=== PATIENT | female | born 1970 | race Caucasian/White ===

== ENCOUNTER 2016-06-17 22:56 | Inpatient (IN) | payer MEDICARE, MEDICAID ==
[~2016-06-17] VITALS: Ht 152.4 cm; Wt 60.3 kg
[2016-06-17] MEDS ORDERED: DIVA250T25 PO (23:26)
[2016-06-17] MEDS ORDERED: MIDO10TA PO (23:26)
[2016-06-17] MEDS ORDERED: LEVO75TA10 PO (23:26)
[2016-06-17] MEDS ORDERED: OXCA300T PO (23:26)
[2016-06-17] MEDS ORDERED: QUET400T12 PO (23:26)
[2016-06-17] MEDS ORDERED: TRAZ-147 PO (23:26)
[2016-06-17] MEDS ORDERED: VENL-67 PO (23:26)
[2016-06-17] MEDS ORDERED: CHLO25TA PO (23:26)
[2016-06-17 23:30] LABS: BASOPHILS % (AUTO) 0.4 % (0.0-2.0); EOSINOPHILS % (AUTO) 0.8 % (1.0-6.0); HEMATOCRIT 38.5 % (36-46); HEMOGLOBIN 12.3 g/dL (12.0-16.0); LYMPHOCYTES # (AUTO) 3.2 K/uL (1.0-4.8); LYMPHOCYTES % (AUTO) 27.7 % (22.0-44.0); MEAN CORPUSCULAR HEMOGLOBIN 28.5 pg (26.0-34.0); MEAN CORPUSCULAR VOLUME 89 fL (80-100); MONOCYTES # (AUTO) 0.6 K/uL (0.1-1.0); MONOCYTES % (AUTO) 4.9 % (2.0-9.0); NEUTROPHILS # (AUTO) 7.7 K/uL (1.8-7.7); NEUTROPHILS % (AUTO) 66.2 % (40.0-70.0); PLATELET COUNT (AUTO) 273 K/uL (150-450); RED BLOOD CELL COUNT(AUTO) 4.33 MIL/uL (4.00-5.20); RED CELL DISTRIBUTION WIDTH 13.5 % (11.5-14.5); WHITE BLOOD COUNT (AUTO) 11.7 K/uL (4.5-11.0)
[2016-06-17 23:37] LABS: ANION GAP 10 mmol/L (8-16); CALCIUM, TOTAL 8.9 mg/dL (8.8-10.5); CARBON DIOXIDE 26 mmol/L (22-29); CHLORIDE 102 mmol/L (98-107); GLOMERULAR FILTR. RATE CALC > 60 mL/min (>60); POTASSIUM 3.8 mmol/L (3.5-5.1); SODIUM SERUM 138 mmol/L (136-145); UREA NITROGEN, BLOOD 24 mg/dL (7-18)
[2016-06-17 23:42] LABS: ALANINE AMINOTRANSFERASE 15 U/L (12-78); ALBUMIN 3.6 g/dL (3.4-5.0); ASPARTATE AMINOTRANSFERASE 12 U/L (15-37); BILIRUBIN,TOTAL 0.2 mg/dL (0.1-1.0); TOTAL PROTEIN, SERUM 8.4 g/dL (6.4-8.2)
[2016-06-18 12:04] VITALS: BP 96/62
[2016-06-18 16:03] VITALS: BP 112/67
[2016-06-18] MEDS: ZOLPIDEM TARTRATE 10 MG TABLET PO PRN (20:18)
[2016-06-19 06:10] VITALS: BP 103/60
[2016-06-19] MEDS: LEVOTHYROXINE SODIUM 75 MCG TABLET PO SCH (06:23)
[2016-06-19 08:09] VITALS: BP 95/54
[2016-06-19 16:09] VITALS: BP 109/65
[2016-06-19] MEDS ORDERED: ACETAMINOPHEN 650 MG/20.3 ML SOLUTION UDCUP PO PRN (16:15)
[2016-06-19] MEDS ORDERED: IBUPROFEN 400 MG TABLET PO PRN ×2 (16:15→21:15)
[2016-06-19] MEDS ORDERED: ACETAMINOPHEN 325 MG TABLET PO PRN ×2 (21:00→21:15)
[2016-06-19] MEDS: ZOLPIDEM TARTRATE 10 MG TABLET PO PRN (21:17)
[2016-06-20 06:01] VITALS: BP 101/60
[2016-06-20] MEDS: LEVOTHYROXINE SODIUM 75 MCG TABLET PO SCH (06:46)
[2016-06-20 08:01] VITALS: BP 100/51
[2016-06-20 08:46] LABS: CHOL/HDL RATIO 3.3 (3.9-5.7); THYROID STIMULATING HORMONE 2.8 uIU/mL (0.36-3.74)
[2016-06-20 16:00] VITALS: BP 137/66
[2016-06-20] MEDS: DIVALPROEX SODIUM 500 MG DR TABLET PO SCH (16:04)
[2016-06-20] MEDS: RisperiDONE 2 MG TABLET PO SCH (16:04)
[2016-06-20] MEDS: ZOLPIDEM TARTRATE 10 MG TABLET PO PRN (20:59)
[2016-06-21] MEDS: LEVOTHYROXINE SODIUM 75 MCG TABLET PO SCH (06:49)
[2016-06-21 07:17] VITALS: BP 102/62
[2016-06-21 08:10] VITALS: BP 109/75
[2016-06-21] MEDS: RisperiDONE 2 MG TABLET PO SCH ×2 (08:32→16:13)
[2016-06-21] MEDS: DIVALPROEX SODIUM 500 MG DR TABLET PO SCH ×2 (08:33→16:13)
[2016-06-21] MEDS ORDERED: MAG HYDROX/AL HYDROX/SIMETH ES 30 ML SUSPENSION UDCUP PO PRN (09:00)
[2016-06-21 16:00] VITALS: BP 108/66
[2016-06-21] MEDS: ZOLPIDEM TARTRATE 10 MG TABLET PO PRN (22:21)
[2016-06-22 06:10] VITALS: BP 152/69
[2016-06-22] MEDS: LEVOTHYROXINE SODIUM 75 MCG TABLET PO SCH (06:29)
[2016-06-22] MEDS: RisperiDONE 2 MG TABLET PO SCH ×2 (08:22→16:02)
[2016-06-22] MEDS: DIVALPROEX SODIUM 500 MG DR TABLET PO SCH ×2 (08:22→16:02)
[2016-06-22 09:15] VITALS: BP 115/77
[2016-06-22 16:11] VITALS: BP 105/67
[2016-06-22] MEDS: ZOLPIDEM TARTRATE 10 MG TABLET PO PRN (22:16)
[2016-06-23 04:28] VITALS: BP 110/79
[2016-06-23] MEDS: LEVOTHYROXINE SODIUM 75 MCG TABLET PO SCH (06:34)
[2016-06-23 08:47] VITALS: BP 127/103
[2016-06-23] MEDS: RisperiDONE 2 MG TABLET PO SCH ×2 (08:47→16:28)
[2016-06-23] MEDS: DIVALPROEX SODIUM 500 MG DR TABLET PO SCH ×2 (08:47→16:28)
[2016-06-23] MEDS: LORazepam 2 MG TABLET PO PRN (11:11)
[2016-06-23 16:00] VITALS: BP 101/65
[2016-06-23] MEDS: ZOLPIDEM TARTRATE 10 MG TABLET PO PRN (20:35)
[2016-06-24] MEDS: LEVOTHYROXINE SODIUM 75 MCG TABLET PO SCH (06:52)
[2016-06-24 07:05] VITALS: BP 115/62
[2016-06-24] MEDS: RisperiDONE 2 MG TABLET PO SCH ×2 (08:47→16:12)
[2016-06-24] MEDS: DIVALPROEX SODIUM 500 MG DR TABLET PO SCH ×2 (08:47→16:12)
[2016-06-24] MEDS: LORazepam 2 MG TABLET PO PRN ×2 (08:47→16:12)
[2016-06-24 09:08] VITALS: BP 113/66
[2016-06-24 16:04] VITALS: BP 109/75
[2016-06-25] MEDS: LEVOTHYROXINE SODIUM 75 MCG TABLET PO SCH (06:36)
[2016-06-25 06:58] VITALS: BP 102/66
[2016-06-25] MEDS: RisperiDONE 2 MG TABLET PO SCH ×2 (08:25→17:00)
[2016-06-25] MEDS: DIVALPROEX SODIUM 500 MG DR TABLET PO SCH ×2 (08:25→17:00)
[2016-06-25 08:30] VITALS: BP 113/76
[2016-06-25] MEDS: LORazepam 2 MG TABLET PO PRN (08:57)
[2016-06-25] MEDS ORDERED: PERMETHRIN 5% 60 GM CREAM TP ONE (10:00)
[2016-06-25] MEDS ORDERED: PERMETHRIN 1% 60 ML LOTION TP ONE (12:00)
[2016-06-25 16:23] VITALS: BP 119/62
[2016-06-26 06:25] VITALS: BP 105/63
[2016-06-26] MEDS: LEVOTHYROXINE SODIUM 75 MCG TABLET PO SCH (06:50)
[2016-06-26 08:20] VITALS: BP 119/76
[2016-06-26] MEDS: DIVALPROEX SODIUM 500 MG DR TABLET PO SCH ×2 (08:34→16:00)
[2016-06-26] MEDS: RisperiDONE 2 MG TABLET PO SCH ×2 (08:34→16:00)
[2016-06-26] MEDS: LORazepam 2 MG TABLET PO PRN ×2 (09:08→16:00)
[2016-06-26 16:00] VITALS: BP 118/78
[2016-06-26 16:17] VITALS: BP 103/67
[2016-06-27] MEDS: LEVOTHYROXINE SODIUM 75 MCG TABLET PO SCH (06:50)
[2016-06-27 07:11] VITALS: BP 110/62
[2016-06-27 08:12] VITALS: BP_SYST 122; BP_SYST 136; BP_DIAS 86; BP_DIAS 89
[2016-06-27] MEDS: DIVALPROEX SODIUM 500 MG DR TABLET PO SCH ×2 (08:36→16:12)
[2016-06-27] MEDS: RisperiDONE 2 MG TABLET PO SCH ×2 (08:36→16:12)
[2016-06-27] MEDS ORDERED: IVERMECTIN 3 MG TABLET PO ONE (15:30)
[2016-06-27 16:04] VITALS: BP 100/59
[2016-06-27 20:00] VITALS: BP 124/70
[2016-06-27] MEDS: LORazepam 2 MG TABLET PO PRN (20:17)
[2016-06-28 06:50] VITALS: BP 112/75
[2016-06-28] MEDS: LEVOTHYROXINE SODIUM 75 MCG TABLET PO SCH (06:57)
[2016-06-28] MEDS: RisperiDONE 2 MG TABLET PO SCH ×2 (08:05→16:20)
[2016-06-28] MEDS: HALOPERIDOL 5 MG TABLET PO PRN (08:05)
[2016-06-28] MEDS: LORazepam 2 MG TABLET PO PRN ×2 (08:05→16:20)
[2016-06-28] MEDS: DIVALPROEX SODIUM 500 MG DR TABLET PO SCH ×2 (08:05→16:20)
[2016-06-28 08:50] VITALS: BP 100/61
[2016-06-28 16:16] VITALS: BP 105/68
[2016-06-29] MEDS: LEVOTHYROXINE SODIUM 75 MCG TABLET PO SCH (06:32)
[2016-06-29] MEDS: RisperiDONE 2 MG TABLET PO SCH ×2 (08:06→16:02)
[2016-06-29] MEDS: DIVALPROEX SODIUM 500 MG DR TABLET PO SCH ×2 (08:06→16:02)
[2016-06-29 16:23] VITALS: BP 111/83
[2016-06-29] MEDS: ZOLPIDEM TARTRATE 10 MG TABLET PO PRN (22:25)
[2016-06-30 04:19] VITALS: BP 112/70
[2016-06-30] MEDS: LEVOTHYROXINE SODIUM 75 MCG TABLET PO SCH (06:32)
[2016-06-30 08:42] VITALS: BP 127/72
[2016-06-30] MEDS ORDERED: PERMETHRIN 1% 60 ML LOTION TP ONE (09:00)
[2016-06-30] MEDS: HALOPERIDOL 5 MG TABLET PO PRN (09:16)
[2016-06-30] MEDS: DIVALPROEX SODIUM 500 MG DR TABLET PO SCH ×2 (09:16→16:39)
[2016-06-30] MEDS: RisperiDONE 2 MG TABLET PO SCH ×2 (09:16→16:39)
[2016-06-30] MEDS: LORazepam 2 MG TABLET PO PRN ×2 (09:16→21:47)
[2016-06-30 13:20] VITALS: BP 119/69
[2016-06-30 16:20] VITALS: BP 119/82
[2016-07-01] MEDS: LEVOTHYROXINE SODIUM 75 MCG TABLET PO SCH (06:48)
[2016-07-01 08:27] VITALS: BP 100/60
[2016-07-01] MEDS: RisperiDONE 2 MG TABLET PO SCH ×2 (08:48→17:22)
[2016-07-01] MEDS: DIVALPROEX SODIUM 500 MG DR TABLET PO SCH ×2 (08:48→17:22)
[2016-07-01 16:00] VITALS: BP 105/72
[2016-07-01] MEDS: LORazepam 2 MG TABLET PO PRN (22:06)
[2016-07-01] MEDS: ZOLPIDEM TARTRATE 10 MG TABLET PO PRN (22:06)
[2016-07-02] MEDS: LEVOTHYROXINE SODIUM 75 MCG TABLET PO SCH (06:39)
[2016-07-02 06:50] VITALS: BP 112/75
[2016-07-02 08:30] VITALS: BP 104/61
[2016-07-02] MEDS: LORazepam 2 MG TABLET PO PRN (08:48)
[2016-07-02] MEDS: DIVALPROEX SODIUM 500 MG DR TABLET PO SCH ×2 (08:49→16:14)
[2016-07-02] MEDS: RisperiDONE 2 MG TABLET PO SCH ×2 (08:49→16:14)
[2016-07-02 16:08] VITALS: BP 108/65
[2016-07-03 05:58] VITALS: BP 100/73
[2016-07-03] MEDS: LEVOTHYROXINE SODIUM 75 MCG TABLET PO SCH (06:47)
[2016-07-03 08:07] VITALS: BP 103/53
[2016-07-03] MEDS: RisperiDONE 2 MG TABLET PO SCH ×2 (08:44→16:16)
[2016-07-03] MEDS: DIVALPROEX SODIUM 500 MG DR TABLET PO SCH ×2 (08:44→16:16)
[2016-07-03] MEDS: LORazepam 2 MG TABLET PO PRN (08:44)
[2016-07-03 16:02] VITALS: BP 110/68
[2016-07-03 20:39] VITALS: BP 114/71
[2016-07-03] MEDS: ZOLPIDEM TARTRATE 10 MG TABLET PO PRN (21:02)
[2016-07-04] MEDS: LEVOTHYROXINE SODIUM 75 MCG TABLET PO SCH (06:29)
[2016-07-04 07:00] VITALS: BP 112/72
[2016-07-04 08:30] VITALS: BP 125/78
[2016-07-04 09:01] LABS: ADD UA MICROSCOPIC NO; APPEARANCE,URINE CLOUDY (CLEAR); GLUCOSE, URINE (UA) NEGATIVE (NEGATIVE); KETONES,URINE NEGATIVE (NEGATIVE); LEUKOCYTE ESTERASE ,URINE NEGATIVE (NEGATIVE); OCCULT BLOOD,URINE NEGATIVE (NEGATIVE); PROTEIN,URINE NEGATIVE (NEGATIVE)
[2016-07-04] MEDS: DIVALPROEX SODIUM 500 MG DR TABLET PO SCH ×2 (09:01→16:57)
[2016-07-04] MEDS: RisperiDONE 2 MG TABLET PO SCH ×2 (09:01→16:57)
[2016-07-04 16:00] VITALS: BP 108/64
[2016-07-04] MEDS: ZOLPIDEM TARTRATE 10 MG TABLET PO PRN (20:51)
[2016-07-05] MEDS: LEVOTHYROXINE SODIUM 75 MCG TABLET PO SCH (06:42)
[2016-07-05 07:26] VITALS: BP 91/64
[2016-07-05] MEDS: RisperiDONE 2 MG TABLET PO SCH ×2 (08:09→16:02)
[2016-07-05] MEDS: DIVALPROEX SODIUM 500 MG DR TABLET PO SCH ×2 (08:09→16:02)
[2016-07-05 08:30] VITALS: BP 100/56
[2016-07-05 16:00] VITALS: BP 128/73
[2016-07-05] MEDS: ZOLPIDEM TARTRATE 10 MG TABLET PO PRN (20:58)
[2016-07-06 06:10] VITALS: BP 104/64
[2016-07-06] MEDS: LEVOTHYROXINE SODIUM 75 MCG TABLET PO SCH (06:30)
[2016-07-06] MEDS: DIVALPROEX SODIUM 500 MG DR TABLET PO SCH ×2 (08:21→16:19)
[2016-07-06] MEDS: RisperiDONE 2 MG TABLET PO SCH ×2 (08:21→16:19)
[2016-07-06 08:37] VITALS: BP 92/50
[2016-07-06] MEDS: LORazepam 2 MG TABLET PO PRN (16:19)
[2016-07-06 16:24] VITALS: BP 112/69
[2016-07-06] MEDS: ZOLPIDEM TARTRATE 10 MG TABLET PO PRN (21:06)
[2016-07-07 01:28] VITALS: BP 101/71
[2016-07-07] MEDS: LEVOTHYROXINE SODIUM 75 MCG TABLET PO SCH (06:42)
[2016-07-07] MEDS: RisperiDONE 2 MG TABLET PO SCH ×2 (08:20→16:38)
[2016-07-07] MEDS: DIVALPROEX SODIUM 500 MG DR TABLET PO SCH ×2 (08:20→16:38)
[2016-07-07 08:29] VITALS: BP 122/66
[2016-07-07 16:00] VITALS: BP 110/70
[2016-07-07] MEDS: ZOLPIDEM TARTRATE 10 MG TABLET PO PRN (21:06)
[2016-07-08 06:03] VITALS: BP 117/72
[2016-07-08] MEDS: LEVOTHYROXINE SODIUM 75 MCG TABLET PO SCH (06:25)
[2016-07-08 08:54] VITALS: BP 100/55
[2016-07-08] MEDS: LORazepam 2 MG TABLET PO PRN ×2 (09:51→16:29)
[2016-07-08] MEDS: DIVALPROEX SODIUM 500 MG DR TABLET PO SCH ×2 (09:51→16:29)
[2016-07-08] MEDS: RisperiDONE 2 MG TABLET PO SCH ×2 (09:51→16:29)
[2016-07-08 16:28] VITALS: BP 139/73
[2016-07-08] MEDS: ZOLPIDEM TARTRATE 10 MG TABLET PO PRN (21:06)
[2016-07-09 06:03] VITALS: BP 128/76
[2016-07-09] MEDS: LEVOTHYROXINE SODIUM 75 MCG TABLET PO SCH (06:21)
[2016-07-09] MEDS: DIVALPROEX SODIUM 500 MG DR TABLET PO SCH ×2 (08:22→16:47)
[2016-07-09] MEDS: RisperiDONE 2 MG TABLET PO SCH ×2 (08:22→16:47)
[2016-07-09] MEDS: LORazepam 2 MG TABLET PO PRN ×2 (09:05→16:47)
[2016-07-09 16:30] VITALS: BP 94/69
[2016-07-09] MEDS: ZOLPIDEM TARTRATE 10 MG TABLET PO PRN (20:59)
[2016-07-10] MEDS: LEVOTHYROXINE SODIUM 75 MCG TABLET PO SCH (06:59)
[2016-07-10 08:32] VITALS: BP 100/52
[2016-07-10] MEDS: DIVALPROEX SODIUM 500 MG DR TABLET PO SCH ×2 (08:55→16:18)
[2016-07-10] MEDS: RisperiDONE 2 MG TABLET PO SCH ×2 (08:55→16:18)
[2016-07-10 16:16] VITALS: BP 105/67
[2016-07-10] MEDS: ZOLPIDEM TARTRATE 10 MG TABLET PO PRN (21:02)
[2016-07-11] MEDS: LEVOTHYROXINE SODIUM 75 MCG TABLET PO SCH (07:00)
[2016-07-11] MEDS: DIVALPROEX SODIUM 500 MG DR TABLET PO SCH ×2 (08:27→16:14)
[2016-07-11] MEDS: RisperiDONE 2 MG TABLET PO SCH ×2 (08:27→16:14)
[2016-07-11 08:44] VITALS: BP 100/53
[2016-07-11] MEDS: LORazepam 2 MG TABLET PO PRN (16:14)
[2016-07-11 16:22] VITALS: BP 129/79
[2016-07-11] MEDS: ZOLPIDEM TARTRATE 10 MG TABLET PO PRN (21:01)
[2016-07-12 06:20] VITALS: BP 126/76
[2016-07-12] MEDS: LEVOTHYROXINE SODIUM 75 MCG TABLET PO SCH (06:48)
[2016-07-12] MEDS: RisperiDONE 2 MG TABLET PO SCH ×2 (08:29→16:34)
[2016-07-12] MEDS: DIVALPROEX SODIUM 500 MG DR TABLET PO SCH ×2 (08:29→16:34)
[2016-07-12 16:00] VITALS: BP 104/62
[2016-07-12] MEDS: LORazepam 2 MG TABLET PO PRN (16:34)
[2016-07-12] MEDS: ZOLPIDEM TARTRATE 10 MG TABLET PO PRN (21:28)
[2016-07-13] MEDS: LEVOTHYROXINE SODIUM 75 MCG TABLET PO SCH (06:41)
[2016-07-13 08:10] VITALS: BP 102/60
[2016-07-13] MEDS: DIVALPROEX SODIUM 500 MG DR TABLET PO SCH ×2 (08:37→16:06)
[2016-07-13] MEDS: RisperiDONE 2 MG TABLET PO SCH ×2 (08:37→16:06)
[2016-07-13 16:00] VITALS: BP 105/67
[2016-07-13] MEDS: LORazepam 2 MG TABLET PO PRN ×2 (16:09→22:27)
[2016-07-13] MEDS: ZOLPIDEM TARTRATE 10 MG TABLET PO PRN (21:15)
[2016-07-14] MEDS: LEVOTHYROXINE SODIUM 75 MCG TABLET PO SCH (06:34)
[2016-07-14 08:20] VITALS: BP 100/56
[2016-07-14] MEDS: RisperiDONE 2 MG TABLET PO SCH ×3 (08:48→17:33)
[2016-07-14] MEDS: DIVALPROEX SODIUM 500 MG DR TABLET PO SCH ×3 (08:48→17:33)
[2016-07-14 16:00] VITALS: BP 129/59
[2016-07-14] MEDS: ZOLPIDEM TARTRATE 10 MG TABLET PO PRN (21:30)
[2016-07-15 01:25] VITALS: BP 102/71
[2016-07-15] MEDS: LEVOTHYROXINE SODIUM 75 MCG TABLET PO SCH (06:22)
[2016-07-15] MEDS: DIVALPROEX SODIUM 500 MG DR TABLET PO SCH ×2 (08:03→16:13)
[2016-07-15] MEDS: RisperiDONE 2 MG TABLET PO SCH ×2 (08:03→16:13)
[2016-07-15 08:46] VITALS: BP 100/51
[2016-07-15 16:27] VITALS: BP 116/71
[2016-07-15] MEDS: ZOLPIDEM TARTRATE 10 MG TABLET PO PRN (20:27)
[2016-07-16] MEDS: LEVOTHYROXINE SODIUM 75 MCG TABLET PO SCH (06:43)
[2016-07-16] MEDS: DIVALPROEX SODIUM 500 MG DR TABLET PO SCH ×2 (08:08→17:05)
[2016-07-16] MEDS: RisperiDONE 2 MG TABLET PO SCH ×2 (08:08→17:05)
[2016-07-16 08:19] VITALS: BP 91/59
[2016-07-16] MEDS: LORazepam 2 MG TABLET PO PRN ×2 (08:22→17:05)
[2016-07-16 16:29] VITALS: BP 108/68
[2016-07-16] MEDS: ZOLPIDEM TARTRATE 10 MG TABLET PO PRN (20:53)
[2016-07-17] MEDS: LEVOTHYROXINE SODIUM 75 MCG TABLET PO SCH (06:41)
[2016-07-17 06:54] VITALS: BP 98/60
[2016-07-17] MEDS: RisperiDONE 2 MG TABLET PO SCH ×2 (08:09→16:34)
[2016-07-17] MEDS: DIVALPROEX SODIUM 500 MG DR TABLET PO SCH ×2 (08:09→16:34)
[2016-07-17 08:39] VITALS: BP 96/54
[2016-07-17 16:46] VITALS: BP 132/60
[2016-07-17] MEDS: ZOLPIDEM TARTRATE 10 MG TABLET PO PRN (20:04)
[2016-07-17] MEDS: LORazepam 2 MG TABLET PO PRN (23:15)
[2016-07-18] MEDS: LEVOTHYROXINE SODIUM 75 MCG TABLET PO SCH (07:02)
[2016-07-18 07:13] VITALS: BP 125/72
[2016-07-18] MEDS: DIVALPROEX SODIUM 500 MG DR TABLET PO SCH ×2 (08:25→17:04)
[2016-07-18] MEDS: RisperiDONE 2 MG TABLET PO SCH ×2 (08:25→17:04)
[2016-07-18 08:54] VITALS: BP 100/52
[2016-07-18 16:35] VITALS: BP 131/65
[2016-07-18 17:01] VITALS: BP 106/71
[2016-07-18] MEDS: LORazepam 2 MG TABLET PO PRN (17:05)
[2016-07-18] MEDS: ZOLPIDEM TARTRATE 10 MG TABLET PO PRN (20:41)
[2016-07-19 05:26] VITALS: BP 103/66
[2016-07-19] MEDS: LEVOTHYROXINE SODIUM 75 MCG TABLET PO SCH (06:30)
[2016-07-19 08:23] VITALS: BP 100/59
[2016-07-19] MEDS: DIVALPROEX SODIUM 500 MG DR TABLET PO SCH ×2 (09:52→16:31)
[2016-07-19] MEDS: RisperiDONE 2 MG TABLET PO SCH ×2 (09:52→16:31)
[2016-07-19 16:00] VITALS: BP 118/67
[2016-07-19] MEDS: ZOLPIDEM TARTRATE 10 MG TABLET PO PRN (21:21)
[2016-07-20 06:33] VITALS: BP 100/62
[2016-07-20] MEDS: LEVOTHYROXINE SODIUM 75 MCG TABLET PO SCH (07:06)
[2016-07-20] MEDS: RisperiDONE 2 MG TABLET PO SCH ×2 (08:19→16:30)
[2016-07-20] MEDS: DIVALPROEX SODIUM 500 MG DR TABLET PO SCH ×2 (08:19→16:30)
[2016-07-20 08:59] VITALS: BP 100/60
[2016-07-20 16:00] VITALS: BP 105/63
[2016-07-20] MEDS: ZOLPIDEM TARTRATE 10 MG TABLET PO PRN (21:08)
[2016-07-21] MEDS: LEVOTHYROXINE SODIUM 75 MCG TABLET PO SCH (06:43)
[2016-07-21 06:51] VITALS: BP 116/72
[2016-07-21 08:15] VITALS: BP 100/52
[2016-07-21] MEDS: RisperiDONE 2 MG TABLET PO SCH (08:19)
[2016-07-21] MEDS: DIVALPROEX SODIUM 500 MG DR TABLET PO SCH (08:19)
[2016-07-21] MEDS ORDERED: RISP2 PO (11:33)
== END 2016-07-21 14:15 | disposition home or self-care (01) | DRG 885 ==
LOC: EMS 23:01 → B3A 06-18 09:10
PROVIDERS: ADMIT Psychiatry & Neurology Psychiatry; ATTEND Psychiatry & Neurology Psychiatry
DX: F25.0 Schizoaffective disorder, bipolar type (principal); E03.9 Hypothyroidism, unspecified; D72.829 Elevated white blood cell count, unspecified; I95.9 Hypotension, unspecified; R10.13 Epigastric pain; F22 Delusional disorders; F79 Unspecified intellectual disabilities; Z88.0 Allergy status to penicillin
CPT/HCPCS: 80307; 83036; 84439; 84443; 87081; 99285; G0480

== ENCOUNTER 2023-11-18 18:28 | Inpatient (IN) | payer MEDICARE, MEDICAID ==
[~2023-11-18] VITALS: Ht 162.6 cm; Wt 61.4 kg
[~2023-11-18 18:28] MED LIST: DIVA-111 PO; LEVO75TA10 PO; RISP2TAB45 PO
[2023-11-18] MEDS ORDERED: GABA-1181 PO (20:00)
[2023-11-18] MEDS ORDERED: FLUP10TA28 PO (20:00)
[2023-11-18] MEDS ORDERED: TRAZ150T80 PO (20:00)
[2023-11-18] MEDS ORDERED: MIRT-89 PO (20:00)
[2023-11-18] MEDS ORDERED: MAGN-169 PO (20:00)
[2023-11-18] MEDS ORDERED: OLAN5TAB52 PO (20:00)
[2023-11-18] MEDS ORDERED: BUPR-514 PO (20:00)
[2023-11-18] MEDS ORDERED: LORA-999 PO (20:00)
[2023-11-18 22:04] LABS: PH,URINE DRUG SCREEN 7.5 (5.0-8.0)
[2023-11-18 22:12] LABS: ALCOHOL, URINE DRUG SCREEN NEGATIVE (NEGATIVE); AMPHET/METH SCREEN,URINE NEGATIVE (NEGATIVE); BARBITURATE SCREEN, URINE NEGATIVE (NEGATIVE); BENZODIAZEPINES SCREEN,URINE POSITIVE (NEGATIVE); CANNABINOID SCREEN,URINE NEGATIVE (NEGATIVE); COCAINE SCREEN,URINE NEGATIVE (NEGATIVE); METHADONE SCREEN, URINE NEGATIVE (NEGATIVE); OPIATE SCREEN,URINE NEGATIVE (NEGATIVE); PHENCYCLIDINE SCREEN,URINE NEGATIVE (NEGATIVE)
[2023-11-18 22:46] LABS: COVID AG,FIA SOURCE NASAL SWAB
[2023-11-18 23:07] LABS: SARS-COV2 (COVID) ANTIGEN,FIA Negative (Negative)
[2023-11-19 05:36] VITALS: BP_SYST 94; BP_DIAS 5; BP_DIAS 54; PULSE 86; RESP 18; TEMP 97.6; O2SAT 96
[2023-11-19 05:55] VITALS: BP 94/52; PULSE 86; RESP 18; TEMP 97.6; O2SAT 96
[2023-11-19 08:29] VITALS: BP 116/60; PULSE 77; RESP 18; TEMP 98.5
[2023-11-19 08:51] LABS: BASOPHILS % (AUTO) 0.4 % (0.0-2.0); EOSINOPHILS % (AUTO) 2.5 % (1.0-6.0); HEMATOCRIT 34.7 % (36-46); HEMOGLOBIN 11.2 g/dL (12.0-16.0); LYMPHOCYTES # (AUTO) 2.4 K/uL (1.0-4.8); LYMPHOCYTES % (AUTO) 32.5 % (22.0-44.0); MEAN CORPUSCULAR HGB CONC 32.4 G/dL (31.0-37.0); MEAN CORPUSCULAR VOLUME 90 fL (80-100); MONOCYTES # (AUTO) 0.4 K/uL (0.1-1.0); MONOCYTES % (AUTO) 5.6 % (2.0-9.0); NEUTROPHILS # (AUTO) 4.3 K/uL (1.8-7.7); PLATELET COUNT (AUTO) 327 K/uL (150-450); RED BLOOD CELL COUNT(AUTO) 3.87 MIL/uL (4.00-5.20); RED CELL DISTRIBUTION WIDTH 13.8 % (11.5-14.5); WHITE BLOOD COUNT (AUTO) 7.3 K/uL (4.5-11.0)
[2023-11-19 09:08] LABS: ANION GAP 11 mmol/L (8-16); CALCIUM, TOTAL 8.7 mg/dL (8.8-10.5); CARBON DIOXIDE 23 mmol/L (22-29); CHLORIDE 107 mmol/L (98-107); GLOMERULAR FILTR. RATE CALC > 60 mL/min (>60); GLUCOSE,RANDOM 91 mg/dL (70-110); POTASSIUM 3.8 mmol/L (3.5-5.1); SODIUM SERUM 141 mmol/L (136-145); UREA NITROGEN, BLOOD 14 mg/dL (7-18)
[2023-11-19] MEDS ORDERED: LORazepam 2 MG TABLET PO PRN (09:30)
[2023-11-19] MEDS: BuPROPion HCL XL 150 MG ER TABLET PO SCH (10:08)
[2023-11-19] MEDS: GABAPENTIN 300 MG CAPSULE PO SCH (10:08)
[2023-11-19] MEDS: FluPHENAZine HCL 10 MG TABLET PO SCH (10:08)
[2023-11-19] MEDS: MIRTAZAPINE 15 MG TABLET PO SCH (10:08)
[2023-11-19] MEDS: OLANZapine 5 MG TABLET PO SCH (10:09)
[2023-11-19] MEDS ORDERED: PETROLATUM,WHITE 28 GM JELLY TP PRN (19:00)
[2023-11-19] MEDS ORDERED: ALBUTEROL SULFATE HFA 90 MCG/PUFF 8 GM INHALER IH PRN (19:00)
[2023-11-19] MEDS ORDERED: CloNIDine HCL 0.1 MG TABLET PO PRN (19:00)
[2023-11-19] MEDS ORDERED: NICOTINE 14 MG/24 HOUR PATCH TD PRN (19:00)
[2023-11-19] MEDS ORDERED: DOCUSATE SODIUM 100 MG CAPSULE PO PRN (19:00)
[2023-11-19] MEDS ORDERED: MAGNESIUM HYDROXIDE SUSPENSION 30 ML UDCUP PO PRN (19:00)
[2023-11-19] MEDS ORDERED: GuaiFENesin/D-METHORPHAN [SUGAR-FREE] 200-20MG/10 ML SYRUP UDCUP PO PRN (19:00)
[2023-11-19] MEDS ORDERED: IBUPROFEN 400 MG TABLET PO PRN (19:00)
[2023-11-19] MEDS ORDERED: ACETAMINOPHEN 325 MG TABLET PO PRN (19:00)
[2023-11-19] MEDS ORDERED: ONDANSETRON 4 MG TABLET PO PRN (19:00)
[2023-11-19] MEDS ORDERED: MAG HYDROX/ALUMINUM HYD/SIMETH ES 30 ML SUSPENSION UDCUP PO PRN (19:00)
[2023-11-19] MEDS ORDERED: LOPERAMIDE HCL 2 MG CAPSULE PO PRN (19:00)
[2023-11-19 20:08] VITALS: BP 125/66; PULSE 85; RESP 18; TEMP 97.5; O2SAT 100
[2023-11-19] MEDS: TraZODone HCL 150 MG TABLET PO SCH (20:16)
[2023-11-20] MEDS: LEVOTHYROXINE SODIUM 75 MCG TABLET PO SCH (06:37)
[2023-11-20 08:08] VITALS: BP 105/60; PULSE 89; RESP 16; TEMP 97.7; O2SAT 99
[2023-11-20] MEDS: FUROSEMIDE 20 MG TABLET PO SCH (08:30)
[2023-11-20] MEDS ORDERED: GABAPENTIN 300 MG CAPSULE PO SCH (09:00)
[2023-11-20 20:05] VITALS: BP 94/65; PULSE 76; RESP 17; TEMP 98.1; O2SAT 98
[2023-11-20] MEDS: INFLUENZA VIRUS VACCINE TVS (6MO+) 2024-25/PF 45 MCG/0.5 ML SYRINGE IM. ONE (20:23)
[2023-11-21 08:21] VITALS: BP 100/56; PULSE 87; RESP 18; TEMP 98.5; O2SAT 98
[2023-11-21 08:47] VITALS: BP 122/89; PULSE 83; RESP 18; O2SAT 98
[2023-11-21 09:14] LABS: APPEARANCE,URINE CLEAR (CLEAR); BILIRUBIN,URINE NEGATIVE (NEGATIVE); COLOR,URINE COLORLESS (YELLOW); GLUCOSE, URINE (UA) NEGATIVE (NEGATIVE); KETONES,URINE NEGATIVE (NEGATIVE); LEUKOCYTE ESTERASE ,URINE NEGATIVE (NEGATIVE); NITRATE,URINE NEGATIVE (NEGATIVE); OCCULT BLOOD,URINE NEGATIVE (NEGATIVE); PH,URINE 7.5 (5.0-8.0); PH,URINE DRUG SCREEN 7.5 (5.0-8.0); PROTEIN,URINE NEGATIVE (NEGATIVE); UROBILINOGEN,URINE <=1.0 mg/dL (<=1.0)
[2023-11-21 09:27] LABS: ALCOHOL, URINE DRUG SCREEN NEGATIVE (NEGATIVE); AMPHET/METH SCREEN,URINE NEGATIVE (NEGATIVE); BARBITURATE SCREEN, URINE NEGATIVE (NEGATIVE); BENZODIAZEPINES SCREEN,URINE POSITIVE (NEGATIVE); CANNABINOID SCREEN,URINE NEGATIVE (NEGATIVE); COCAINE SCREEN,URINE NEGATIVE (NEGATIVE); METHADONE SCREEN, URINE NEGATIVE (NEGATIVE); OPIATE SCREEN,URINE NEGATIVE (NEGATIVE); PHENCYCLIDINE SCREEN,URINE NEGATIVE (NEGATIVE)
[2023-11-21 20:11] VITALS: BP 122/73; PULSE 92; RESP 16; TEMP 98; O2SAT 98
[2023-11-22] MEDS: ZOLPIDEM TARTRATE 10 MG TABLET PO PRN (01:07)
[2023-11-22] MEDS: HALOPERIDOL 5 MG TABLET PO PRN (01:07)
[2023-11-22 08:03] VITALS: RESP 18
[2023-11-22 09:00] LABS: HEMOGLOBIN A1C 5.2 % (3.8-5.6)
[2023-11-22 09:11] VITALS: BP 103/65; PULSE 93; RESP 18; TEMP 97.8; O2SAT 95
[2023-11-22 09:24] LABS: CHOL/HDL RATIO 2.7 (3.9-5.7); THYROID STIMULATING HORMONE 2.08 uIU/mL (0.36-3.74)
[2023-11-22 20:14] VITALS: BP 110/60; PULSE 68; RESP 18; TEMP 98; O2SAT 95
[2023-11-23 09:00] VITALS: BP 106/66; PULSE 84; RESP 18; TEMP 97.2; O2SAT 99
[2023-11-23] MEDS ORDERED: FURO-152 PO (14:19)
== END 2023-11-23 17:30 | DRG 885 ==
LOC: EMS 18:28 → B2X 11-19 02:09 → UNDODISIN 11-23 13:25
PROVIDERS: ADMIT Psychiatry & Neurology Child & Adolescent Psychiatry; ATTEND Psychiatry & Neurology Child & Adolescent Psychiatry
PROC: GZ56ZZZ Individual Psychotherapy, Supportive (ICD-10-PCS; principal; 2023-11-19)
PROC: GZ52ZZZ Individual Psychotherapy, Cognitive (ICD-10-PCS; 2023-11-19)
PROC: GZHZZZZ Group Psychotherapy (ICD-10-PCS; 2023-11-19)
DX: F20.9 Schizophrenia, unspecified (principal); E87.6 Hypokalemia; K59.00 Constipation, unspecified; Z20.822 Contact with and (suspected) exposure to COVID-19; G47.00 Insomnia, unspecified; D64.9 Anemia, unspecified; F31.9 Bipolar disorder, unspecified; Z88.0 Allergy status to penicillin
CPT/HCPCS: 80048; 80061; 80307; 81003; 83036; 84443; 85025; 99285